=== PATIENT | female | born 1970 | race Caucasian/White ===

== ENCOUNTER → 2020-09-25 | Day surgery (SDC) | payer MEDICARE, OTHER ==
[~2020-09-25] VITALS: Ht 142.2 cm; Wt 76.7 kg
[~2020-09-25] MED LIST: CALCIUM PO; MVI PO; NEXIUM10 MG PO; PROBIOTIC1 EAC1 PO; PROTONIX 40MG T40 MG PO; VIT C PO
== END | disposition home or self-care (01) ==
LOC: FAS 07:00
DX: K20.90 Esophagitis, unspecified without bleeding (principal); K22.2 Esophageal obstruction; K29.80 Duodenitis without bleeding; K31.89 Other diseases of stomach and duodenum; Q90.9 Down syndrome, unspecified; E55.9 Vitamin D deficiency, unspecified; R63.4 Abnormal weight loss; Z90.710 Acquired absence of both cervix and uterus
CPT/HCPCS: 88305; J2250; J2704; J7120